=== PATIENT | female | born 1980 ===

== ENCOUNTER 2020-03-16 06:51 | Emergency (ER) | payer BC ==
[2020-03-16] MEDS ORDERED: cloNIDine 0.2 MG TAB PO ONE (07:54)
--- NOTE | 2020-03-16 08:27 | XRay Report ---
. CHEST 1 VIEW INDICATION / CLINICAL INFORMATION: cough, possible covid. COMPARISON: None available. FINDINGS: SUPPORT DEVICES: None. HEART / MEDIASTINUM: No significant abnormality. LUNGS / PLEURA: No confluent infiltrates or pleural effusion. No pneumothorax. ADDITIONAL FINDINGS: Overlying soft tissue opacities. IMPRESSION: 1. No acute findings. Signer Name: Esa Woodward MD Signed: 03/16/2020 8:22 AM Workstation Name: [id number]
--- NOTE | 2020-03-16 08:44 | Emergency Department Report ---
- General Chief Complaint: Chest Pain Stated Complaint: CHEST PAIN/FATIGUE/FEVER Time Seen by Provider: 03/16/20 07:50 Source: patient Mode of arrival: Ambulatory Limitations: No Limitations - History of Present Illness Initial Comments: Patient is a 39-year-old F [place] female who is presenting with cough and congestion for the last 2 days. Patient states that cough is nonproductive but she does feel like there is a lot of mucus in the back of her throat. Cough can sound wet. She has had some subjective fevers and chills. Patient has body aches mild sore throat but she denies any nausea vomiting or diarrhea. Patient has a possible exposure to COVID-19 from work. Severity scale (0 -10): 3 Associated Symptoms: fever, chills, myalgias, nasal congestion, sore throat, cough. denies: diaphoresis, headache, rhinorrhea, chest pain, shortness of breath, abdominal pain, nausea, vomiting, diarrhea, confusion, right sweats, weight loss - Related Data Previous Rx's Medication Instructions Recorded Last Taken Type Albuterol Mdi (or & Nicu Only) 2 puff IH QID PRN #1 inhalation 03/16/20 Unknown Rx [ProAir HFA Inhaler] HYDROcodone/APAP 5-325 [Mad[place] 1 each PO Q6HR PRN #10 tablet 03/16/20 Unknown Rx 5/325] predniSONE [Deltasone] 20 mg PO QDAY #5 tab 03/16/20 Unknown Rx Allergies Allergy/AdvReac Type Severity Reaction Status Date / Time aspirin Allergy Swelling Verified 03/16/20 07:11 ibuprofen Allergy Swelling Verified 03/16/20 07:11 Penicillins Allergy Swelling Verified 03/16/20 07:11 ED Review of Systems ROS: Stated complaint: CHEST PAIN/FATIGUE/FEVER Other details as noted in HPI Comment: All other systems reviewed and negative ED Past Medical Hx - Past Medical History Hx Hypertension: Yes Hx Asthma: Yes - Surgical History Additional Surgical History: c section/reduction - Social History Smoking Status: Never Smoker Substance Use Type: Alcohol - Medications Home Medications: Home Medications Medication Instructions Recorded Confirmed Last Taken Type Albuterol Mdi (or & Nicu Only) 2 puff IH QID PRN #1 inhalation 03/16/20 Unknown Rx [ProAir HFA Inhaler] HYDROcodone/APAP 5-325 [[place] 1 each PO Q6HR PRN #10 tablet 03/16/20 Unknown Rx 5/325] predniSONE [Deltasone] 20 mg PO QDAY #5 tab 03/16/20 Unknown Rx ED Physical Exam - General Limitations: No Limitations General appearance: alert, in no apparent distress - Head Head exam: Present: atraumatic, normocephalic - Eye Eye exam: Present: normal appearance - ENT ENT exam: Present: mucous membranes moist - Neck Neck exam: Present: normal inspection - Respiratory Respiratory exam: Present: normal lung sounds bilaterally. Absent: respiratory distress, wheezes, rales, rhonchi - Cardiovascular Cardiovascular Exam: Present: regular rate, normal rhythm, normal heart sounds. Absent: systolic murmur, diastolic murmur, rubs, gallop - GI/Abdominal GI/Abdominal exam: Present: soft, normal bowel sounds. Absent: distended, tenderness, guarding, rebound - Extremities Exam Extremities exam: Present: normal inspection - Back Exam Back exam: Present: normal inspection - Neurological Exam Neurological exam: Present: alert, oriented X3 - Psychiatric Psychiatric exam: Present: normal affect, normal mood - Skin Skin exam: Present: warm, dry, intact, normal color. Absent: rash ED Course Vital Signs 03/16/20 03/16/20 03/16/20 07:18 07:19 08:39 Temperature 98.1 F Pulse Rate 82 Respiratory 20 Rate Blood Pressure 189/117 187/91 O2 Sat by Pulse 95 Oximetry ED Medical Decision Making - Radiology Data Chest x-ray is within normal limits - Medical Decision Making Patient is a 39-year-old F [place]an female who is presenting with cough congestion fevers and body aches. It is possible the patient does have COVID-19 but because of the time of the year this could be a flulike illness as well as common cold. Patient was given outpatient resources for COVID-19 testing. She was given medication for symptomatic relief and be discharged home. Critical care attestation.: If time is entered above; I have spent that time in minutes in the direct care of this critically ill patient, excluding procedure time. ED Disposition Clinical Impression: Acute bronchitis, Suspected COVID-19 virus infection Disposition: - TO HOME OR SELFCARE Is pt being admited?: No Does the pt Need Aspirin: No Condition: Stable Instructions: Acute Bronchitis (ED), Acute Bronchitis, Adult, [id number], COVID-19 Frequently Asked Questions, COVID-19 Additional Instructions: Please follow-up for outpatient testing for COVID-19 Referrals: LONG LANDERS MD [Referring] - 3-5 Days Forms: Work/School Release Form(ED) Time of Disposition: 08:43
[2020-03-16 09:04] VITALS: BP 137/81
== END 2020-03-16 09:00 | disposition home or self-care (01) ==
LOC: ED 06:51
DX: J20.9 Acute bronchitis, unspecified (principal); J45.909 Unspecified asthma, uncomplicated; I10 Essential (primary) hypertension; Z20.828 Contact with and (suspected) exposure to other viral communicable diseases
CPT/HCPCS: 71045; 93005

== ENCOUNTER 2021-01-29 17:02 | Emergency (ER) | payer SELFPAY ==
[2021-01-29 18:40] LABS: Basophils % (Auto) 0.3 % (0.0-1.8); Eosinophils # (Auto) 0.1 K/mm3 (0.0-0.4); Eosinophils % (Auto) 1.5 % (0.0-4.3); Hematocrit 37.6 % (30.3-42.9); Lymphocytes # (Auto) 2.4 K/mm3 (1.2-5.4); Mean Corpuscular HGB Conc 35 % (30-34); Mean Corpuscular Volume 89 fl (79-97); Monocytes # (Auto) 0.4 K/mm3 (0.0-0.8); Monocytes % (Auto) 5.2 % (0.0-7.3); Platelet Count 231 K/mm3 (140-440); Red Blood Count 4.21 M/mm3 (3.65-5.03); Red Cell Distribution Width 15.1 % (13.2-15.2)
[2021-01-29 19:18] LABS: Alanine Aminotransferase 22 units/L (7-56); Blood Urea Nitrogen 13 mg/dL (7-17); Calcium 9.9 mg/dL (8.4-10.2); Hemolysis Index 11
[2021-01-29 19:20] LABS: BUN/Creatinine Ratio 22
--- NOTE | 2021-01-29 19:57 | XRay Report ---
CHEST 2 VIEWS INDICATION / CLINICAL INFORMATION: Chest Pain. COMPARISON: None available. FINDINGS: SUPPORT DEVICES: None. HEART / MEDIASTINUM: No significant abnormality. LUNGS / PLEURA: No significant pulmonary or pleural abnormality. No pneumothorax. ADDITIONAL FINDINGS: No significant additional findings. IMPRESSION: 1. No acute findings. Signer Name: David Montilla MD Signed: 01/29/2021 7:52 PM Workstation Name: [id number]
--- NOTE | 2021-01-29 21:25 | Emergency Department Report ---
ED General Adult HPI - General Chief complaint: Chest Pain Stated complaint: CHEST PAIN/SOB Time Seen by Provider: 01/29/21 17:50 Source: patient Mode of arrival: Ambulatory Limitations: No Limitations - History of Present Illness Initial comments: Patient is a 40-year-old female presents emergency room with complaints of right-sided chest pain that began last night. She states it feels like a pressure. She states that she is also had shortness of breath. Patient states that she has noticed some swelling around her ankles but it improves after she e levates her legs. She denies any cough, hemoptysis, nausea, vomiting, diarrhea, fever, calf pain. Past medical history of hypertension. Allergy to NSAIDs and penicillin. Last menstrual cycle . she denies any recent travel, recent surgery, sick contacts, hormone use. She has not been vaccinated for COVID-19. - Related Data Previous Rx's Medication Instructions Recorded Last Taken Type Albuterol Mdi (or & Nicu Only) 2 puff IH QID PRN #1 inhalation 03/16/20 Unknown Rx [ProAir HFA Inhaler] HYDROcodone/APAP 5-325 [George 1 each PO Q6HR PRN #10 tablet 03/16/20 Unknown Rx 5/325] predniSONE [Deltasone] 20 mg PO QDAY #5 tab 03/16/20 Unknown Rx Acetaminophen [Tylenol] 650 mg PO BID PRN #20 capsule 01/29/21 Unknown Rx Prednisone [predniSONE 10 mg 10 mg PO .TAPER #1 tab.ds.pk 01/29/21 Unknown Rx (6-Day Pack, 21 Tabs)] methOCARBAMOL [Robaxin TAB] 500 mg PO BID PRN #14 tab 01/29/21 Unknown Rx Allergies Allergy/AdvReac Type Severity Reaction Status Date / Time aspirin Allergy Swelling Verified 03/16/20 07:11 ibuprofen Allergy Swelling Verified 03/16/20 07:11 Penicillins Allergy Swelling Verified 03/16/20 07:11 ED Review of Systems ROS: Stated complaint: CHEST PAIN/SOB Other details as noted in HPI Comment: All other systems reviewed and negative ED Past Medical Hx - Past Medical History Previous Medical History?: Yes Hx Hypertension: Yes Hx Asthma: Yes - Surgical History Past Surgical History?: Yes Additional Surgical History: c section/reduction - Social History Smoking Status: Never Smoker Substance Use Type: Alcohol - Medications Home Medications: Home Medications Medication Instructions Recorded Confirmed Last Taken Type Albuterol Mdi (or & Nicu Only) 2 puff IH QID PRN #1 inhalation 03/16/20 Unknown Rx [ProAir HFA Inhaler] HYDROcodone/APAP 5-325 [George 1 each PO Q6HR PRN #10 tablet 03/16/20 Unknown Rx 5/325] predniSONE [Deltasone] 20 mg PO QDAY #5 tab 03/16/20 Unknown Rx Acetaminophen [Tylenol] 650 mg PO BID PRN #20 capsule 01/29/21 Unknown Rx Prednisone [predniSONE 10 mg 10 mg PO .TAPER #1 tab.ds.pk 01/29/21 Unknown Rx (6-Day Pack, 21 Tabs)] methOCARBAMOL [Robaxin TAB] 500 mg PO BID PRN #14 tab 01/29/21 Unknown Rx ED Physical Exam - General Limitations: No Limitations General appearance: alert, in no apparent distress - Head Head exam: Present: atraumatic, normocephalic - Eye Eye exam: Present: normal appearance - ENT ENT exam: Present: mucous membranes moist - Respiratory Respiratory exam: Present: normal lung sounds bilaterally. Absent: respiratory distress, wheezes, rales, rhonchi, stridor, chest wall tenderness, accessory muscle use, decreased breath sounds, prolonged expiratory - Cardiovascular Cardiovascular Exam: Present: regular rate, normal rhythm, normal heart sounds. Absent: systolic murmur, diastolic murmur, rubs, gallop - Extremities Exam Extremities exam: Present: other (mild non pitting edema to the bilateral ankles, no swelling to the rest of the BLE, no calf ttp, no erythema, no increased warmth, FROM BLE, neurovascularly intact) - Neurological Exam Neurological exam: Present: alert, oriented X3 - Psychiatric Psychiatric exam: Present: normal affect, normal mood - Skin Skin exam: Present: warm, dry, intact ED Course Vital Signs 01/29/21 01/29/21 17:11 22:41 Temperature 98.4 F Pulse Rate 85 72 Respiratory 18 20 Rate Blood Pressure 149/89 155/88 O2 Sat by Pulse 96 99 Oximetry ED Medical Decision Making - Lab Data Result diagrams: 01/29/21 18:03 01/29/21 18:03 Lab Results 01/29/21 01/29/21 01/29/21 Range/Units 18:03 18:03 18:03 WBC 7.9 (4.5-11.0) K/mm3 RBC 4.21 (3.65-5.03) M/mm3 Hgb 13.0 (10.1-14.3) gm/dl Hct 37.6 (30.3-42.9) % MCV 89 (79-97) fl MCH 31 (28-32) pg MCHC 35 H (30-34) % RDW 15.1 (13.2-15.2) % Plt Count 231 (140-440) K/mm3 Lymph % (Auto) 31.0 (13.4-35.0) % [place] % (Auto) 5.2 (0.0-7.3) % Eos % (Auto) 1.5 (0.0-4.3) % Baso % (Auto) 0.3 (0.0-1.8) % Lymph # (Auto) 2.4 (1.2-5.4) K/mm3 [place] # (Auto) 0.4 (0.0-0.8) K/mm3 Eos # (Auto) 0.1 (0.0-0.4) K/mm3 Baso # (Auto) 0.0 (0.0-0.1) K/mm3 Seg Neutrophils % 62.0 (40.0-70.0) % Seg Neutrophils # 4.9 (1.8-7.7) K/mm3 D-Dimer 669.71 H (0-234) ng/mlDDU Sodium 140 (137-145) mmol/L Potassium 4.2 (3.6-5.0) mmol/L Chloride 103.3 (98-107) mmol/L Carbon Dioxide 26 (22-30) mmol/L Anion Gap 15 mmol/L BUN 13 (7-17) mg/dL Creatinine 0.6 (0.6-1.2) mg/dL Estimated GFR > 60 ml/min BUN/Creatinine Ratio 22 % Glucose 127 H (65-100) mg/dL Calcium 9.9 (8.4-10.2) mg/dL Total Bilirubin 0.30 (0.1-1.2) mg/dL AST 18 (5-40) units/L ALT 22 (7-56) units/L Alkaline Phosphatase 131 H (35-129) units/L Troponin T < 0.010 (0.00-0.029) ng/mL NT-Pro-B Natriuret Pep 74.28 (0-450) pg/mL Total Protein 7.6 (6.3-8.2) g/dL Albumin 4.0 (3.9-5) g/dL Albumin/Globulin Ratio 1.1 % HCG, Qual (Negative) 01/29/21 01/29/21 Range/Units 18:03 20:41 WBC (4.5-11.0) K/mm3 RBC (3.65-5.03) M/mm3 Hgb (10.1-14.3) gm/dl Hct (30.3-42.9) % MCV (79-97) fl MCH (28-32) pg MCHC (30-34) % RDW (13.2-15.2) % Plt Count (140-440) K/mm3 Lymph % (Auto) (13.4-35.0) % [place] % (Auto) (0.0-7.3) % Eos % (Auto) (0.0-4.3) % Baso % (Auto) (0.0-1.8) % Lymph # (Auto) (1.2-5.4) K/mm3 [place] # (Auto) (0.0-0.8) K/mm3 Eos # (Auto) (0.0-0.4) K/mm3 Baso # (Auto) (0.0-0.1) K/mm3 Seg Neutrophils % (40.0-70.0) % Seg Neutrophils # (1.8-7.7) K/mm3 D-Dimer (0-234) ng/mlDDU Sodium (137-145) mmol/L Potassium (3.6-5.0) mmol/L Chloride (98-107) mmol/L Carbon Dioxide (22-30) mmol/L Anion Gap mmol/L BUN (7-17) mg/dL Creatinine (0.6-1.2) mg/dL Estimated GFR ml/min BUN/Creatinine Ratio % Glucose (65-100) mg/dL Calcium (8.4-10.2) mg/dL Total Bilirubin (0.1-1.2) mg/dL AST (5-40) units/L ALT (7-56) units/L Alkaline Phosphatase (35-129) units/L Troponin T < 0.010 (0.00-0.029) ng/mL NT-Pro-B Natriuret Pep (0-450) pg/mL Total Protein (6.3-8.2) g/dL Albumin (3.9-5) g/dL Albumin/Globulin Ratio % HCG, Qual Negative (Negative) - EKG Data EKG shows normal: sinus rhythm, axis, intervals, QRS complexes, ST-T waves Rate: normal - Radiology Data Radiology results: report reviewed o rdering Physician: NIKOLAY PARKER Date of Service: 01/29/21 Procedure(s): XR chest routine 2V Accession Number(s): [id number] cc: NIKOLAY PARKER Fluoro Time In Minutes: CHEST 2 VIEWS INDICATION / CLINICAL INFORMATION: Chest Pain. COMPARISON: None available. FINDINGS: SUPPORT DEVICES: None. HEART / MEDIASTINUM: No significant abnormality. LUNGS / PLEURA: No significant pulmonary or pleural abnormality. No pneumothorax. ADDITIONAL FINDINGS: No significant additional findings. IMPRESSION: 1. No acute findings. Signer Name: David Montilla MD Signed: 01/29/2021 7:52 PM Workstation Name: [id number] Transcribed By: JOEY Dictated By: David Montilla MD Electronically Authenticated By: David Montilla MD Signed Date/Time: 01/29/211951 DD/ 51 TD/TT: Ordering Physician: NIKOLAY PARKER Date of Service: 01/29/21 Procedure(s): CT angio chest Accession Number(s): [id number] cc: NIKOLAY PARKER CTA CHEST WITH CONTRAST INDICATION / CLINICAL INFORMATION: SOB, CP, elevated d-dimer. TECHNIQUE: Axial CT images were obtained through the chest after injection of IV contrast. 3 plane MIP and/or 3D reconstructions were produced. All CT scans at this location are performed using CT dose reduction for ALARA by means of automated exposure control. COMPARISON: Chest radiograph earlier same day FINDINGS: PULMONARY ARTERIES: No pulmonary emboli. THORACIC AORTA: No significant abnormality. HEART: No significant abnormality. CORONARY ARTERY CALCIFICATION: None. MEDIASTINUM / YOSELIN: No significant abnormality. PLEURA: No pleural effusion. No pneumothorax. LUNGS: No acute air space or interstitial disease. ADDITIONAL FINDINGS: None. UPPER ABDOMEN: No acute findings. SKELETAL STRUCTURES: No significant osseous abnormality. IMPRESSION: 1. No CT evidence for pulmonary embolism. 2. No acute intrathoracic findings. Signer Name: Edgar Lemus MD Signed: 01/29/2021 10:22 PM Workstation Name: [id number] Transcribed By: SB Dictated By: EDGAR LEMUS MD Electronically Authenticated By: EDGAR LEMUS MD Signed Date/Time: 01/29/212221 DD/ 20 TD/TT: - Medical Decision Making Patient is a 40-year-old female presents emergency room with complaints of right-sided chest pain that began last night. She states it feels like a pressure. She states that she is also had shortness of breath. Patient states that she has noticed some swelling around her ankles but it improves after she elevates her legs. She denies any cough, hemoptysis, nausea, vomiting, diarrhea, fever, calf pain. Past medical history of hypertension. Allergy to NSAIDs and penicillin. Last menstrual cycle 01/22/21. she denies any recent travel, recent surgery, sick contacts, hormone use. She has not been vaccinated for COVID-19. vss. EKG is WNL. trop is negative x2. d-dimer is elevated. CXR: 1. No acute findings. CT angio chest: 1. No CT evidence for pulmonary embolism. 2. No acute intrathoracic findings. Symptoms could be related to costochondritis versus pleuritis. Patient has mild nonpitting edema to the ankles, this is likely dependent in nature, no signs of arterial occlusion, no clinical signs of DVT, discussed compression stockings and low-sodium diet and elevating legs. Patient given prescription for medication. advised patient Please take medication as prescribed. Follow-up with your primary care doctor. Follow-up with a tube laser operator. Return to emergency room for any new or worsening symptoms. Critical care attestation.: If time is entered above; I have spent that time in minutes in the direct care of this critically ill patient, excluding procedure time. ED Disposition Clinical Impression: SOB (shortness of breath), Ankle edema Chest pain Qualifiers: Chest pain type: unspecified Qualified Code(s): R07.9 - Chest pain, unspecified Disposition: 01 HOME / SELF CARE / HOMELESS Is pt being admited?: No Does the pt Need Aspirin: No Condition: Stable Instructions: Pleurisy, Costochondritis Additional Instructions: Please take medication as prescribed. Follow-up with your primary care doctor. Follow-up with a tube laser operator. Return to emergency room for any new or worsening symptoms. Prescriptions: Prednisone [predniSONE 10 mg (6-Day Pack, 21 Tabs)] 10 mg PO .TAPER #1 tab.ds.pk methOCARBAMOL [Robaxin TAB] 500 mg PO BID PRN #14 tab PRN Reason: pain/muscle spasm Acetaminophen [Tylenol] 650 mg PO BID PRN #20 capsule PRN Reason: pain Referrals: CARLA WHEELER DO [Primary Care Provider] - 2-3 Days VISHAL GOMEZ MD [Staff Physician] - 2-3 Days Forms: Work/School Release Form(ED) Time of Disposition: 22:31 Print Language: SLOVENIAN HEART Score - HEART Score History: Slightly suspicious EKG: Normal Age: < 45 Risk factors: 1-2 risk factors Troponin: Troponin T < 0.010 ng/mL (0.00-0.029) 01/29/21 20:41 Troponin: < normal limit HEART Score: 1
--- NOTE | 2021-01-29 22:27 | Cat Scan Report ---
CTA CHEST WITH CONTRAST INDICATION / CLINICAL INFORMATION: SOB, CP, elevated d-dimer. TECHNIQUE: Axial CT images were obtained through the chest after injection of IV contrast. 3 plane LA P and/or 3D reconstructions were produced. All CT scans at this location are performed using CT dose reduction for ALARA by means of automated exposure control. COMPARISON: Chest radiograph earlier same day FINDINGS: PULMONARY ARTERIES: No pulmonary emboli. THORACIC AORTA: No significant abnormality. HEART: No significant abnormality. CORONARY ARTERY CALCIFICATION: None. MEDIASTINUM / YOSELIN: No significant abnormality. PLEURA: No pleural effusion. No pneumothorax. LUNGS: No acute air space or interstitial disease. ADDITIONAL FINDINGS: None. UPPER ABDOMEN: No acute findings. SKELETAL STRUCTURES: No significant osseous abnormality. IMPRESSION: 1. No CT evidence for pulmonary embolism. 2. No acute intrathoracic findings. Signer Name: Edgar Lemus MD Signed: 01/29/2021 10:22 PM Workstation Name: [id number]
[2021-01-29 22:42] VITALS: BP 155/88
--- NOTE | 2021-02-06 10:20 | Electrocardiograph Report ---
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
== END 2021-01-29 22:46 | disposition home or self-care (01) ==
LOC: ED 17:02
DX: R06.02 Shortness of breath (principal); R07.9 Chest pain, unspecified; R60.0 Localized edema; Z88.8 Allergy status to other drugs, medicaments and biological substances; Z88.0 Allergy status to penicillin
CPT/HCPCS: 36415; 71046; 71275; 80053; 83880; 84484; 84703; 85025; 85379; 93005; 99284; Q9967